=== PATIENT | female | born 2005 | race Caucasian/White ===

== ENCOUNTER 2024-01-10 23:34 | Outpatient (CLI) | payer OTHER ==
[~2024-01-10] VITALS: Ht 160 cm; Wt 93.7 kg
[2024-01-10 23:57] VITALS: BP 115/65
[2024-01-11] MEDS ORDERED: PREN1CHW6 PO (00:05)
== END 2024-01-11 00:31 | disposition home or self-care (01) ==
LOC: M LDO 23:34
PROVIDERS: ATTEND Advanced Practice Midwife
DX: O36.8120 Decreased fetal movements, second trimester, not applicable or unspecified (principal); Z3A.26 26 weeks gestation of pregnancy
CPT/HCPCS: 59025; G0463

== ENCOUNTER → 2024-01-22 | Outpatient (CLI) | payer OTHER ==
[~2024-01-22] MED LIST: PREN1CHW6 PO
[2024-01-22 17:40] LABS: HEMATOCRIT 37.1 % (36.0-47.0); HEMOGLOBIN 12.3 g/dl (12.0-15.5); MEAN CORPUSCULAR HEMOGLOBIN 29.2 pg (27.0-33.0); MEAN CORPUSCULAR HGB CONC 33.2 g/dl (32.0-36.5); MEAN CORPUSCULAR VOLUME 88.1 fl (80.0-96.0); PLATELET COUNT, AUTOMATED 253 10^3/uL (150-450); RED BLOOD COUNT 4.21 10^6/uL (4.00-5.40); WHITE BLOOD COUNT 16.7 10^3/uL (4.0-10.0)
[2024-01-22 18:12] LABS: GLUCOSE CHALLENGE TEST 1 HOUR 59 MG/DL (LESS THAN 140)
[2024-01-22 18:47] LABS: HIV 1&2 SCREEN NEGATIVE (NEGATIVE)
[2024-01-22 18:55] LABS: HEPATITIS C VIRUS ABY INDEX 0.05 INDEX (<0.8)
[2024-01-22 19:07] LABS: GC DNA AMPLIFICATION NEGATIVE (NEGATIVE)
== END ==
LOC: M PLALAB 14:01
PROVIDERS: ATTEND Nurse Practitioner Women's Health
DX: Z36.89 Encounter for other specified antenatal screening (principal); Z3A.28 28 weeks gestation of pregnancy

== ENCOUNTER → 2024-03-20 | Outpatient (REF) | payer OTHER | LOC: M PLALAB 14:05 | PROVIDERS: ATTEND Obstetrics & Gynecology | DX: Z36.85 Encounter for antenatal screening for Streptococcus B (principal); Z3A.36 36 weeks gestation of pregnancy ==

== ENCOUNTER 2024-04-05 03:49 | Inpatient (IN) | payer OTHER ==
[~2024-04-05] VITALS: Ht 160 cm; Wt 103.0 kg
[2024-04-05] VITALS (25 sets, daily range): BP systolic 102–150; BP diastolic 56–93; TEMP 98.2; O2SAT 97
[2024-04-05] MEDS ORDERED: OXYTOCIN DRIP 30 UNITS in IV 1 EA IV PRN (04:45)
[2024-04-05] MEDS ORDERED: TRANEXAMIC ACID INJection 1,000 MG in NS 100 ML IV PRN (04:45)
[2024-04-05] MEDS ORDERED: CARBOPROST TROMETHAMINE 250 MCG/ML AMP IM PRN (04:45)
[2024-04-05] MEDS ORDERED: LACTATED RINGER'S 1000 ML IV PRN (04:45)
[2024-04-05] MEDS ORDERED: METHYLERGONOVINE MALEATE 0.2MG/ML 1ML VIAL IM PRN (04:45)
[2024-04-05] MEDS ORDERED: HOME MED LIST COMPLETE! XX SCH (04:55)
[2024-04-05] MEDS ORDERED: OXYTOCIN DRIP 30 UNITS in IV 1 EA IV SCH (04:55)
[2024-04-05 05:04] LABS: BASO % 0.2 % (0.0-1.0); EOS # 0.2 10^3/uL (0.0-0.5); EOS % 0.9 % (0.0-3.0); HEMATOCRIT 36.1 % (36.0-47.0); LYMPH # 3.2 10^3/uL (1.5-5.0); LYMPH % 17.3 % (24.0-44.0); MEAN CORPUSCULAR HEMOGLOBIN 28.1 pg (27.0-33.0); MEAN CORPUSCULAR HGB CONC 33.2 g/dl (32.0-36.5); MEAN CORPUSCULAR VOLUME 84.5 fl (80.0-96.0); MONO % 5.5 % (2.0-8.0); NEUTROPHILS # 13.4 10^3/uL (1.5-8.5); NEUTROPHILS % 73.8 % (36.0-66.0); PLATELET COUNT, AUTOMATED 279 10^3/uL (150-450); RED BLOOD COUNT 4.27 10^6/uL (4.00-5.40); WHITE BLOOD COUNT 18.2 10^3/uL (4.0-10.0)
[2024-04-05 06:01] LABS: HEPATITIS C VIRUS ABY INDEX 0.11 INDEX (<0.8)
[2024-04-05] MEDS: LR 1,000 ML IV SCH (07:16)
[2024-04-05] MEDS ORDERED: diphenhydrAMINE 50MG/ML VIAL IV PRN (07:50)
[2024-04-05] MEDS ORDERED: ePHEDrine SULFATE 25 MG/5 ML(5MG/ML) SYRINGE IVP PRN (07:50)
[2024-04-05] MEDS ORDERED: NALOXONE INJ 0.4MG/1ML VIAL IV PRN (07:50)
[2024-04-05] MEDS ORDERED: EPIDURAL/PCA KEYS XX PRN (07:50)
[2024-04-05] MEDS ORDERED: LR 500 ML IV PRN (07:50)
[2024-04-05] MEDS ORDERED: ONDANSETRON 4MG 2ML VIAL IV PRN (07:50)
[2024-04-05] MEDS: FENTANYL/ROPIVACAINE/NACL BAG 100 ML EPIDURAL SCH (08:27)
[2024-04-05] MEDS: PRENATAL VITAMINS CHEWABLE TABLET PO SCH (09:00)
[2024-04-05] MEDS ORDERED: METHYLERGONOVINE MALEATE 0.2 MG TAB PO PRN (12:30)
[2024-04-05] MEDS ORDERED: RHOGAM 300MCG (1500IU) INJ IM SCH (12:30)
[2024-04-05] MEDS ORDERED: DIBUCAINE 1% OINTMENT 30GM TOP PRN (12:30)
[2024-04-05] MEDS: ACETAMINOPHEN 500 MG TAB PO PRN (16:03)
[2024-04-05] MEDS: DOCUSATE SODIUM 100MG CAPSULE PO PRN (19:50)
[2024-04-05] MEDS: IBUPROFEN 600MG TAB PO PRN (19:53)
[2024-04-06] MEDS ORDERED: UNRESOLVED CLARIFICATION ENTRY XX SCH (00:01)
[2024-04-06 05:54] VITALS: BP 112/65; O2SAT 97
[2024-04-06 06:49] LABS: HEMATOCRIT 32.3 % (36.0-47.0); HEMOGLOBIN 10.3 g/dl (12.0-15.5); MEAN CORPUSCULAR HEMOGLOBIN 27.5 pg (27.0-33.0); MEAN CORPUSCULAR HGB CONC 31.9 g/dl (32.0-36.5); MEAN CORPUSCULAR VOLUME 86.4 fl (80.0-96.0); PLATELET COUNT, AUTOMATED 190 10^3/uL (150-450); RED BLOOD COUNT 3.74 10^6/uL (4.00-5.40); WHITE BLOOD COUNT 15.5 10^3/uL (4.0-10.0)
[2024-04-06 18:00] VITALS: BP 123/85; O2SAT 98
[2024-04-07 05:46] VITALS: BP 136/65; O2SAT 98
[2024-04-07] MEDS: MEASLES,MUMPS,RUBELLA VACCINE INJ (MMR-II) SC.IMMUN ONE (08:49)
== END 2024-04-07 12:00 | disposition home or self-care (01) | DRG 807 ==
LOC: M LDO 03:49 → M LDI 04:07 → M OBS 14:23
PROVIDERS: ADMIT Obstetrics & Gynecology; ATTEND Obstetrics & Gynecology
PROC: 10E0XZZ Delivery of Products of Conception, External Approach (ICD-10-PCS; principal; 2024-04-05)
PROC: 0HQ9XZZ Repair Perineum Skin, External Approach (ICD-10-PCS; 2024-04-05)
DX: O42.02 Full-term premature rupture of membranes, onset of labor within 24 hours of rupture (principal); Z37.0 Single live birth; Z3A.38 38 weeks gestation of pregnancy; O69.82X0 Labor and delivery complicated by other cord entanglement, without compression, not applicable or unspecified; O70.0 First degree perineal laceration during delivery

== ENCOUNTER → 2025-02-14 | Outpatient (CLI) | payer OTHER | LOC: M WHC 11:51 | PROVIDERS: ATTEND Obstetrics & Gynecology | DX: Z36.89 Encounter for other specified antenatal screening (principal); Z3A.20 20 weeks gestation of pregnancy ==